=== PATIENT | female | born 1960 | race Caucasian/White ===

== ENCOUNTER 2017-08-23 13:27 | Emergency (ER) | payer BC ==
--- NOTE | 2017-08-23 14:17 | ER Document Report ---
ED Medical Screen (RME) - General Chief Complaint: Urinary Problem Stated Complaint: VAGINAL BLEEDING Time Seen by Provider: 08/23/17 14:13 Notes: 56-year-old female patient past history of vulvar cancer, completed chemo one year ago. She has had hematuria with blood clots since 4 PM yesterday. She has frequency and bladder pelvic pressure. She reports sweats and chills over the weekend with decreased appetite. She has not taken any medication for her chills and sweats and feeling feverish. I have greeted and performed a rapid initial assessment of this patient. A comprehensive ED assessment and evaluation of the patient, analysis of test results and completion of the medical decision making process will be conducted by additional ED providers. TRAVEL OUTSIDE OF THE [place] IN LAST 30 DAYS: No - Related Data Allergies/Adverse Reactions: lisinopril Allergy (Verified 08/23/17 13:37) oxycodone [From OxyContin] Allergy (Verified 08/23/17 13:37) Hives Past Medical History - Past Medical History Cardiac Medical History: Reports: Hx Hypertension Denies: Hx Coronary Artery Disease, Hx Heart Attack Pulmonary Medical History: Reports: Hx Bronchitis - HX OF Denies: Hx Asthma, Hx COPD, Hx Pneumonia Neurological Medical History: Denies: Hx Seizures. Comment Only: Hx Cerebrovascular Accident - NOT ON ANY MEDICATIONS GI Medical History: Reports: Hx Diverticulitis Musculoskeltal Medical History: Denies Hx Arthritis - LEFT WRIST Past Surgical History: Reports: Hx Bowel Surgery - Section, Hx Hysterectomy - Immunizations Immunizations up to date: Yes Hx Diphtheria, Pertussis, Tetanus Vaccination: Yes Physical Exam - Vital signs Vitals: Temp Pulse Resp BP Pulse Ox 99.1 F 109 H 20 120/72 97 08/23/17 13:44 08/23/17 13:44 08/23/17 13:44 08/23/17 13:44 08/23/17 13:44 Course - Vital Signs Vital signs: Temp Pulse Resp BP Pulse Ox 99.1 F 109 H 20 120/72 97 08/23/17 13:44 08/23/17 13:44 08/23/17 13:44 08/23/17 13:44 08/23/17 13:44
[2017-08-23 15:06] LABS: ABSOLUTE LYMPHOCYTES (AUTO) 0.6 10^3/uL (0.5-4.7); ABSOLUTE MONOCYTES (AUTO) 0.7 10^3/uL (0.1-1.4); ABSOLUTE NEUT (AUTO) 6.6 10^3/uL (1.7-8.2); BASOPHILS % (AUTO) 0.4 % (0-2); EOSINOPHILS % (AUTO) 0.6 % (0-6); HEMATOCRIT 36.9 % (36.0-47.0); HEMOGLOBIN 12.7 g/dL (12.0-15.5); LYMPHOCYTES % (AUTO) 7.5 % (13-45); MEAN CORPUSCULAR HEMOGLOBIN 34.5 pg (27.0-33.4); MEAN CORPUSCULAR HGB CONC 34.3 g/dL (32.0-36.0); MEAN CORPUSCULAR VOLUME 101 fl (80-97); MONOCYTES % (AUTO) 8.3 % (3-13); PLATELET COUNT 253 10^3/uL (150-450); RED BLOOD COUNT 3.67 10^6/uL (3.72-5.28); RED CELL DISTRIBUTION WIDTH 12.6 % (11.5-14.0); SEGMENTED NEUTROPHILS % (AUTO) 83.2 % (42-78); TOTAL CELLS COUNTED % (AUTO) 100 %; WHITE BLOOD COUNT 7.9 10^3/uL (4.0-10.5)
[2017-08-23 15:27] LABS: ALANINE AMINOTRANSFERASE 59 U/L (9-52); ALBUMIN 5.1 g/dL (3.5-5.0); ALKALINE PHOSPHATASE 95 U/L (38-126); ANION GAP 11 (5-19); ASPARTATE AMINO TRANSFERASE 62 U/L (14-36); BILIRUBIN,DIRECT 0.3 mg/dL (0.0-0.4); BILIRUBIN,TOTAL 0.7 mg/dL (0.2-1.3); BLOOD UREA NITROGEN 14 mg/dL (7-20); CALCIUM 10.3 mg/dL (8.4-10.2); CARBON DIOXIDE 27 mmol/L (22-30); CHLORIDE 98 mmol/L (98-107); GLUCOSE 127 mg/dL (75-110); SODIUM 136.4 mmol/L (137-145); TOTAL PROTEIN 7.7 g/dL (6.3-8.2)
[2017-08-23 15:28] LABS: POTASSIUM 4.7 mmol/L (3.6-5.0)
[2017-08-23 17:11] LABS: APPEARANCE,URINE CLOUDY; BILIRUBIN,URINE NEGATIVE (NEGATIVE); COLOR,URINE RED; GLUCOSE, URINE 50 mg/dL (NEGATIVE); KETONES,URINE NEGATIVE (NEGATIVE); LEUKOCYTE ESTERASE,URINE NEGATIVE (NEGATIVE); NITRITE,URINE NEGATIVE (NEGATIVE); PROTEIN,URINE 100 mg/dL (NEGATIVE); UROBILINOGEN,URINE NEGATIVE mg/dL (<2.0)
--- NOTE | 2017-08-23 18:32 | ER Document Report ---
ED GI/ - General Chief Complaint: Urinary Problem Stated Complaint: VAGINAL BLEEDING Time Seen by Provider: 08/23/17 14:13 Notes: Patient began passing blood with small clots with urinating yesterday. She has had burning and discomfort with urination and passing these clots, but not having difficulty urinating. She has had some chills over the weekend, but not actually taken her temp. Denies any nausea or vomiting or diarrhea. Patient has a history of cancer of the vulva diagnosed about a year ago and had surgery removing lymph nodes followed by chemotherapy and radiation for 2 months. She is followed at [facility] in [place]. She says that she had a total body scan in October 2016 which was normal and showed no evidence of cancer. I called and spoke to Dr. Hilda Diaz at [facility], who is familiar with this patient and we discussed the plan. They are going to see her in [place] on . Were going to work her up here and treat her with antibiotics if needed, and determine that her blood counts are safe to wait until . Hypertension, hysterectomy, surgery for bowel obstruction. Anxiety and panic attacks, depression. TRAVEL OUTSIDE OF THE [place] IN LAST 30 DAYS: No - Related Data Allergies/Adverse Reactions: lisinopril Allergy (Verified 08/23/17 13:37) oxycodone [From OxyContin] Allergy (Verified 08/23/17 13:37) Hives Home Medications: Current Home Medications Alprazolam 0.5 mg PO BID 08/23/17 [History] Amlodipine Besylate 5 mg PO DAILY 08/23/17 [History] Bisacodyl 5 mg PO DAILY 08/23/17 [History] Calcium Acetate/Al Sulfate [[place] Packet] 1 each TP TID 08/23/17 [History] Losartan Potassium 100 mg PO DAILY 08/23/17 [History] Sertraline HCl 50 mg PO DAILY 08/23/17 [History] Past Medical History - Social History Smoking Status: Never Smoker Chew tobacco use (# tins/day): No Frequency of alcohol use: None Drug Abuse: None Family History: Reviewed & Not Pertinent Patient has suicidal ideation: No Patient has homicidal ideation: No - Past Medical History Cardiac Medical History: Reports: Hx Hypertension Pulmonary Medical History: Reports: Hx Bronchitis - HX OF Neurological Medical History: Comment Only: Hx Cerebrovascular Accident - NOT ON ANY MEDICATIONS GI Medical History: Reports: Hx Diverticulitis Psychiatric Medical History: Reports: Hx Anxiety, Hx Depression, Other - Panic attacks Past Surgical History: Reports: Hx Bowel Surgery - Bowel obstruction, Hx Hysterectomy - Immunizations Immunizations up to date: Yes Hx Diphtheria, Pertussis, Tetanus Vaccination: Yes Review of Systems - Review of Systems Notes: REVIEW OF SYSTEMS: CONSTITUTIONAL : Believes she had some fever over the weekend. EENT: Denies eye, ear, nose or mouth or throat pain or other symptoms. CARDIOVASCULAR: Denies chest pain. RESPIRATORY: Denies cough, chest congestion, or shortness of breath. GASTROINTESTINAL: Denies abdominal pain or nausea, vomiting, or diarrhea. GENITOURINARY: See HPI. Patient is certain that the blood that she is seeing is coming from the urethra and bladder and not from the vagina. MUSCULOSKELETAL: Denies back or neck pain. Denies joint pain or swelling. SKIN: Denies rash or skin lesions. NEUROLOGICAL: Denies LOC or altered mental status. Denies headache. Denies sensory loss or motor deficits. ALL OTHER SYSTEMS REVIEWED AND NEGATIVE. Physical Exam - Vital signs Vitals: Temp Pulse Resp BP Pulse Ox 99.1 F 109 H 20 120/72 97 08/23/17 13:44 08/23/17 13:44 08/23/17 13:44 08/23/17 13:44 08/23/17 13:44 Interpretation: Tachycardic - Minor - Notes Notes: PHYSICAL EXAMINATION: GENERAL: Well-appearing, in no acute distress. Very anxious. HEAD: Atraumatic, normocephalic. EYES: Pupils equal round and reactive to light, extraocular movements intact. ENT: oropharynx clear without exudates. Moist mucous membranes. NECK: Normal range of motion, supple. LUNGS: Breath sounds clear and equal bilaterally. HEART: Regular rate and rhythm without murmurs. ABDOMEN: Soft, nontender. No guarding or rebound. No masses. Genitourinary examination: Pelvic exam attempted. Patient has some erythema to the entire genital skin that she says is secondary to the radiation. The vaginal introitus is very small and does not permit the passage of the speculum or even my fingers. I do not see any blood from the vagina. I do not see any blood anywhere on the pelvic area. I did stick a Q-tip into the vaginal orifice about 2-3 cm depth, and did not see any blood on the Q-tip when it was removed. I did that twice without any signs of blood on the cotton tip swab. Patient is not bleeding externally anywhere that I can see. Patient's urinalysis specimen is grossly bloody with small clots. BACK: No tenderness throughout entire back. EXTREMITIES: Normal range of motion without pain. NEUROLOGICAL: Normal speech, normal gait. Normal sensory, motor, and reflex exams. Awake, alert, and oriented x3. Cranial nerves normal. PSYCH: Normal mood, normal affect. SKIN: Warm, dry, no rashes. Course - Vital Signs Vital signs: Temp Pulse Resp BP Pulse Ox 99.0 F 97 20 120/73 100 08/23/17 18:35 08/23/17 18:35 08/23/17 18:35 08/23/17 18:35 08/23/17 18:35 - Laboratory Result Diagrams: 08/23/17 14:37 08/23/17 14:37 Laboratory results interpreted by me: 08/23/17 08/23/17 08/23/17 14:37 14:37 16:41 RBC 3.67 L MCV 101 H MCH 34.5 H Seg Neutrophils % 83.2 H Lymphocytes % 7.5 L Sodium 136.4 L Glucose 127 H Calcium 10.3 H AST 62 H ALT 59 H Albumin 5.1 H Urine Protein 100 H Urine Glucose (UA) 50 H Urine Blood LARGE H Discharge - Discharge Clinical Impression: Hematuria, Radiation cystitis Condition: Stable Disposition: HOME, SELF-CARE Additional Instructions: Hematuria Hematuria, or blood in your urine, can be caused by minor medical problems , such as a bladder infection, or by more serious medical conditions, such as kidney stones or even tumors of the bladder or kidney. If the cause of the hematuria is known (such as a bladder infection) and can be treated, it may not need further evaluation. If the cause is not known, it will usually require further evaluation by a specialist, such as a urologist. In particular, unexplained hematuria in the older patient must be evaluated to rule out a serious condition, such as a bladder or kidney tumor. If the hematuria worsens or you are passing clots and then are unable to urinate, you should be re-evaluated. A catheter may need to be placed in the bladder to permit passage of urine. If you develop high fever, severe pain, or other new or worsening symptoms, return to the Emergency Department for re- evaluation. Your bleeding is most likely due to changes in your bladder secondary to the radiation therapy he received. This condition, called radiation cystitis, is fairly common. The amount of bleeding you are having is relatively small and you should not bleed enough to require any transfusions. There is no evidence of infection and you do not need an antibiotic. Follow-up at your doctor's in [place], as scheduled. Return if you have inability to urinate at all and the catheter may be passed to help that. Return if you run high fevers of 102 or more. Return if you have new or different symptoms that we have not discussed the concern you. Forms: Return to Work Referrals: LILO FERNÁNDEZ MD [Primary Care Provider] - Follow up as needed
[2017-08-23 18:42] VITALS: BP 120/73
== END 2017-08-23 18:44 | disposition home or self-care (01) ==
LOC: ER 13:27
DX: N30.41 Irradiation cystitis with hematuria (principal); N93.9 Abnormal uterine and vaginal bleeding, unspecified; Z87.412 Personal history of vulvar dysplasia; Z79.899 Other long term (current) drug therapy
CPT/HCPCS: 36415; 80053; 81001; 85025; 87040; 87086; 99283